=== PATIENT | female | born 1980 | race Caucasian/White ===

== ENCOUNTER 2023-08-23 13:02 | Emergency (ER) | payer BC, SELFPAY ==
[2023-08-23 13:04] VITALS: BP 165/95; PULSE 80; RESP 18; TEMP 35.8; O2SAT 98; BMI 21.0
--- NOTE | 2023-08-23 13:15 | EX.ED.GENINJ ---
HPI <FILEMON Godoy - Last Filed: 08/23/23 15:21> History of Present Illness Chief Complaint: Laceration Narrative Narrative: Patient presenting today with a laceration to her left index finger that she got from a knife while trying to cut a bagel this afternoon. Tetanus is up-to-date, she is not on any blood thinners, she denies any other injury. She is right-handed. PFSH <FILEMON Godoy - Last Filed: 08/23/23 15:21> PFSH Allergy/AdvReac Type Severity Reaction Status Date / Time amoxicillin [From Augmentin] Allergy Mild Rash Verified 08/23/23 13:04 clavulanic acid Allergy Mild Rash Verified 08/23/23 13:04 [From Augmentin] Penicillins Allergy Mild Rash Verified 08/23/23 13:04 phenazopyridine Allergy Mild bells palsy Verified 08/23/23 13:04 [From Pyridium] Sulfa (Sulfonamide Allergy Mild Rash Verified 08/23/23 13:04 Antibiotics) Social History Smoking Status: Never smoker ROS <FILEMON Godoy - Last Filed: 08/23/23 15:21> ROS ED Constitutional Constitutional ED: Denies chills or fever(s) Cardiovascular Cardiovascular: Denies chest pain Respiratory/Chest Respiratory/Chest: Denies cough or dyspnea Gastrointestinal Gastrointestinal: Denies abdominal pain, nausea or vomiting Musculoskeletal Musculoskeletal: Denies arthralgias or myalgias Integumentary Reports laceration Neurologic Neurologic: Denies paresthesias or weakness EXAM <FILEMON Godoy - Last Filed: 08/23/23 15:21> Physical Exam Const Vital Signs: 08/23/23 13:04 Temperature 96.5 F L Temperature Source Temporal Pulse Rate 80 Respiratory Rate 18 Blood Pressure 165/95 H Blood Pressure Mean 118 Pulse Ox 98 Oxygen Delivery Method Room Air Positive well nourished, well developed and no apparent distress General Appearance ED: well developed HEENT Reports normocephalic and head/scalp atraumatic Mouth ED: Yes moist mucous membranes normal Eyes PERRL and EOMs intact bilaterally Neck full ROM and supple Chest Wall inspection of chest normal Resp normal respiratory effort and clear to auscultation bilaterally Cardio regular rate and regular rhythm GI soft to palpation, non-tender, non-distended and no masses Back/Spine normal ROM and normal to inspection Extremity full ROM Extremity Narrative: 2 cm linear full-thickness laceration to the palmar aspect of the left first finger just above the DIP joint. Full flexion and extension at the left MCP, PIP, and DIP joints. Left radial pulse 2+, good capillary refill, sensation intact. Neuro oriented x3, CN's II-XII intact bilaterally, moves all extremities, no focal motor deficits and no sensory deficits noted Sensorium / Orientation: awake and alert Psych mental status grossly normal and thought process normal <Dr. Claudio Will DO - Last Filed: 08/23/23 17:08> Physical Exam Const Vital Signs: 08/23/23 13:04 Temperature 96.5 F L Temperature Source Temporal Pulse Rate 80 Respiratory Rate 18 Blood Pressure 165/95 H Blood Pressure Mean 118 Pulse Ox 98 Oxygen Delivery Method Room Air PROC <FILEMON Godoy - Last Filed: 08/23/23 15:21> Procedures Lacerations Laceration: Length: 0.79 in Depth: Sub Q Shape: Linear Prep: Chlorhexadine Laceration repair: Digital block, Irrigated, Lidocaine and Skin sutures Number of Sutures/Lilly: 4 Suture Information: Ethilon, Simple and 6-0 MDM <FILEMON Godoy - Last Filed: 08/23/23 15:21> [facility] Narrative Medical decision making narrative: Patient presenting today with a laceration to her left first finger. This will need repaired. It will be cleaned and copiously irrigated with normal saline. Digital block performed, patient tolerated procedure well, sutures were placed, see procedure note. She has been instructed to have sutures removed in 7 to 10 days. Bacitracin ointment and a bandage were placed. She has been educated on signs of infection to look out for and reasons to return. She be discharged home in stable condition and is comfortable with plan. I have personally performed a face to face assessment of the patient and have reviewed the NANCY Note. I performed a substantive portion of the visit including all aspects of the following. My rosario findings include: History is [patient presents with laceration to the left index finger prior to arrival emergency department. Patient was cutting a bagel when she lacerated her finger. She is right-hand dominant. She is up-to-date on tetanus.] Exam is [HEENT-PERRLA, EOMI. Cranial nerves II through XII grossly intact. TMs clear. Mucous membranes moist. No adenopathy. Cardiovascular-regular rate and rhythm without murmur or ectopy Lungs-clear to auscultation, chest wall stable without crepitus or subcu emphysema Abdomen-normoactive bowel sounds, soft, nontender, no rebound or rigidity, no peritoneal signs. Extremities-intact ?4 index finger-patient has a 2 cm laceration over the distal phalanx palmar aspect. She has normal range of motion in flexion extension of the PIP and DIP joint against resistance. Medical Decison Making [patient up-to-date on tetanus and with a laceration to her left index finger. Please see PAs note SR suture repair. She is advised to have sutures removed in 10 days. She is to return if increasing pain, redness, swelling, purulent drainage, or condition should worsen anyway.] Other additions or changes: [None] <Dr. Claudio Will, DO - Last Filed: 08/23/23 17:08> [facility] Narrative Medical decision making narrative: This willPatient presenting today with a laceration to her left first finger. And repaired. It will be cleaned and copiously irrigated with normal saline. I have personally performed a face to face assessment of the patient and have reviewed the NANCY Note. I performed a substantive portion of the visit including all aspects of the following. My rosario findings include: History is [patient presents with laceration to the left index finger prior to arrival emergency department. Patient was cutting a bagel when she lacerated her finger. She is right-hand dominant. She is up-to-date on tetanus.] Exam is [HEENT-PERRLA, EOMI. Cranial nerves II through XII grossly intact. TMs clear. Mucous membranes moist. No adenopathy. Cardiovascular-regular rate and rhythm without murmur or ectopy Lungs-clear to auscultation, chest wall stable without crepitus or subcu emphysema Abdomen-normoactive bowel sounds, soft, nontender, no rebound or rigidity, no peritoneal signs. Extremities-intact ?4 index finger-patient has a 2 cm laceration over the distal phalanx palmar aspect. She has normal range of motion in flexion extension of the PIP and DIP joint against resistance. Medical Decison Making [patient up-to-date on tetanus and with a laceration to her left index finger. Please see PAs note SR suture repair. She is advised to have sutures removed in 10 days. She is to return if increasing pain, redness, swelling, purulent drainage, or condition should worsen anyway.] Other additions or changes: [None] Discharge Plan Triage Chief Complaint: Laceration ED Midlevel Provider: Edwina Grimaldo ED Provider: Claudio Will Dx/Rx/DC Orders Clinical Impression: Finger laceration Instructions: ED Laceration Extremity Primary Care Provider: Care Physician,No Primary Referrals: NOT,DEFINED [Non-Staff] - Activity Restrictions/Additional Instructions: have stitches removed in 7 days. Follow-up with your PCP or return for any signs of infection. Disposition Disposition: Home, Self Care Discharge Date/Time: 08/23/23 14:01
[2023-08-23] MEDS: Lidocaine 1% (20 ml mdv) 20 ML Vial 10 ML INFILT (14:00)
== END 2023-08-23 14:01 | disposition home or self-care (01) ==
PROVIDERS: Emergency Provider Emergency Medicine; Visit Provider Emergency Medicine
DX: S61.211A Laceration without foreign body of left index finger without damage to nail, initial encounter (principal); W26.0XXA Contact with knife, initial encounter
CPT/HCPCS: 12001; 99283